=== PATIENT | male | born 1950 | race Caucasian/White ===

== ENCOUNTER → 2017-07-30 | Outpatient (CLI) | payer OTHER ==
[~2017-07-30] MED LIST: ASPIRIN81 M2 PO; MULTIPLE VITAM1 EACH PO; SIMVASTATIN20 MG PO; VITAMIN C1000 MG PO
== END | disposition home or self-care (01) ==
LOC: NUC 09:23
DX: I24.9 Acute ischemic heart disease, unspecified (principal); Z82.49 Family history of ischemic heart disease and other diseases of the circulatory system
CPT/HCPCS: 78452; 93017; A9500

== ENCOUNTER 2017-08-17 09:57 | Day surgery (SDC) | payer OTHER ==
[~2017-08-17] VITALS: Ht 177.8 cm; Wt 95.0 kg
== END 2017-08-17 16:00 | disposition home or self-care (01) ==
LOC: CATH 09:57
DX: I25.10 Atherosclerotic heart disease of native coronary artery without angina pectoris (principal); E78.5 Hyperlipidemia, unspecified; E66.9 Obesity, unspecified; Z68.30 Body mass index [BMI] 30.0-30.9, adult; Z79.82 Long term (current) use of aspirin; Z82.49 Family history of ischemic heart disease and other diseases of the circulatory system
CPT/HCPCS: C1769; C1887; C1894; J1644; J2250; J3010